=== PATIENT | male | born 1980 | race African-American/Black ===

== ENCOUNTER 2017-12-03 05:57 | Emergency (ER) | payer OTHER ==
[~2017-12-03] VITALS: Ht 175.3 cm; Wt 62.0 kg
[2017-12-03 06:00] VITALS: BP 149/117
[2017-12-03] MEDS ORDERED: OXYcodone/APAP 5/325MG TABLET ONE (07:24)
[2017-12-03] MEDS ORDERED: DIAZEPAM 5 MG TABLET ONE (07:25)
[2017-12-03] MEDS ORDERED: OXYcodone/APAP 5/325MG TABLET PO ONE (07:30)
[2017-12-03] MEDS ORDERED: DIAZEPAM 5 MG TABLET PO ONE (07:30)
== END 2017-12-03 09:05 | disposition home or self-care (01) ==
LOC: ED 08:17
DX: M54.12 Radiculopathy, cervical region (principal); M54.16 Radiculopathy, lumbar region
CPT/HCPCS: 72050; 72110; 99284; J7512